=== PATIENT | female | born 1940 ===

== ENCOUNTER 2018-04-17 06:09 | Day surgery (SDC) | payer MEDICARE, BC ==
[2018-04-12 09:27] VITALS: BMI 22.1
[2018-04-17] MEDS ORDERED: Lidocaine 1% Inj (20ml) IJ ONE (07:19)
[2018-04-17] MEDS ORDERED: ceFAZolin IV 1 gm in Dextrose 1 GM/50 ML BAG IVPB ONE (07:19)
[2018-04-17] MEDS ORDERED: Bupivacaine 0.25% Inj(30mL) IJ ONE (07:19)
--- NOTE | 2018-04-17 07:21 | CP.SDSHP ---
Same Day Surgery H & P - History Proposed Procedure: right foot 5th digit markie-phalagectomy middle phalanx Pre-Op Diagnosis: pain to right 5th digit - Previous Medical/Surgical History Pain: 4.Moderate Pain - Allergies Allergies: Allergies No Known Allergies Allergy (Verified 04/12/18 09:27) - Physical Exam Vital Signs: Vital Signs 04/17/18 04/17/18 06:48 06:50 Temperature 98.7 F Pulse Rate 65 65 Respiratory 20 Rate Blood Pressure 163/65 H O2 Sat by Pulse 97 Oximetry Neuro: WNL - {Optional Preform as Required} Integument: WNL - Impression Pt. Evaluated Today:Candidate for Anesthesia & Procedure: Yes - Date & Time Date: 04/17/18 Time: 07:21 Short Stay Discharge - Short Stay Discharge Admitting Diagnosis/Reason for Visit: M20.41,M25.744 Disposition: HOME/ ROUTINE Referrals: Ron Beckford MD [Primary Care Provider] - Additional Instructions (Diet, Activity): -Patient in good/stable condition for discharge home -Pt to resume medications per medical reconciliation -Resume regular diet Please keep dressing clean, dry, & intact to surgical site -Use plastic bag over bandage for showering -Wear post op shoe at all times when ambulating -Call clinic if you see signs of infection (redness, swelling, malodor) -Please make an appointment to see Dr. Julian in office/clinic within 1 week for post-op check Progress Note/Discharge Note with Instructions: - Patient evaluated bedside in recovery s/p surgical procedure. - After surgical procedure patient in NAD - (+) Void, (+) Appetite - Capillary refill time <3s and NVSI intact. - Patient denies complaints at this time - Post operative instructions and plan of care explained to patient at length. - Pt. acknowledges understanding. - Patient stable for DC per podiatric surgery
--- NOTE | 2018-04-17 07:24 | CP.PCM.PN ---
Subjective - Date & Time of Evaluation Date of Evaluation: 04/17/18 Time of Evaluation: 07:21 - Subjective Subjective: Podiatry progress note for Dr. Julian 78 y/o female with PMHx of diabetes and HTN seen and evaluated at bedside in [facility] for surgery to the 5th right digit. Patient states she has had pain to the site for many months. Patient states she last ate or drank at 7 PM last night. Patient denies any reaction to anesthesia in the past. Patient's son is at bedside and states she had a blister, which she popper herself and that led to any infection of the 5th digit. PMHx: Diabetes, HTN, hx of heart condition with pacemaker Medications: in chart Allergies: none Objective - Vital Signs/Intake and Output Vital Signs (last 24 hours): Temp Pulse Resp BP Pulse Ox 98.7 F 65 20 163/65 H 97 04/17/18 06:48 04/17/18 06:50 04/17/18 06:48 04/17/18 06:48 04/17/18 06:48 - Medications Medications: Current Medications Bupivacaine HCl (Marcaine 0.25%) 20 ml IJ ONCE ONE Stop: 04/17/18 07:20 Cefazolin Sodium 1 gm/ Sodium (Chloride) 100 mls @ 100 mls/hr IVPB ONCE ONE PRN Reason: Protocol Stop: 04/17/18 08:18 Sodium Chloride (Sodium Chloride 0.9%) 1,000 mls @ 0 mls/hr IV .Q0M CRISTINA PRN Reason: As Directed Stop: 04/18/18 07:19 Lidocaine HCl (Lidocaine 1% (20ml)) 20 ml IJ ONCE ONE Stop: 04/17/18 07:20 - Constitutional Appears: Well, Non-toxic, No Acute Distress - Head Exam Head Exam: ATRAUMATIC, NORMOCEPHALIC - Extremities Exam Additional comments: VASC: DP and PT 2/4 bilaterally, CFT less than 3 seconds X 10, TG within normal limits, +1 pitting edema to anterior legs bilaterally NEURO: grossly intact DERM: minimal erythema noted to the lateral aspect of the 5th digit, no swelling, no open lesions, no clinical signs of infection ORTHO: pain on palpation of the right 5th MTPJ, pain on palpation to the 5th digit, submet 1 hyperkeratotic lesion noted with pain on palpation - Neurological Exam Neurological Exam: Alert, Awake, Oriented x3 - Psychiatric Exam Psychiatric exam: Normal Affect, Normal Mood Assessment and Plan - Assessment and Plan (Free Text) Assessment: 78 y/o female seen and evaluated in [facility] for surgery to right 5th digit Plan: Pt was seen and examined in [facility] Pt NPO status was confirmed All pre-op testing and clearance in chart Pt has exhausted all conservative treatment at this time and is opting for surgical intervention Pt was explained procedure and post-operative course All pt's questions were answered to satisfaction No guarantees were made Pt understands all risks, benefits and complications of procedure Pt will follow-up with Dr. Julian within 1 week of surgery
[2018-04-17] MEDS ORDERED: Sodium Chloride 0.9% 1,000 ML IV SCH (07:30)
[2018-04-17] MEDS ORDERED: Propofol 10 mg/ml Inj (20 ML) ONE (07:57)
[2018-04-17] MEDS ORDERED: Midazolam 2 MG/2 ML VIAL ONE (07:57)
[2018-04-17] MEDS ORDERED: ceFAZolin IV 1 gm in Dextrose 2 GM/100 ML BAG IVPB ONE (08:00)
[2018-04-17] MEDS ORDERED: Lidocaine 2% PF (10 ml) Amp ONE (08:03)
[2018-04-17] MEDS ORDERED: Lactated Ringer's 1,000 ML IV ONE (08:05)
[2018-04-17] MEDS ORDERED: Lidocaine 2% Inj (20ml) IJ ONE (08:25)
[2018-04-17] MEDS ORDERED: Oxycodone/Acetaminophen 5/325 mg Tab PO PRN (08:31)
[2018-04-17] MEDS ORDERED: Bupivacaine HCl 0.25% PF (30 ml) Inj IJ ONE ×2 (08:35)
--- NOTE | 2018-04-17 09:08 | PCM.SURG1 ---
Surgeon's Initial Post Op Note - Surgeon's Notes Surgeon: Dr. John Julian, DPM Inspector: Dr. Erin Pitts PGY2, Dr. Kev Marquez PGY2 Type of Anesthesia: IV Sedation, Local Anesthesia Administered By: Dr. Mathews Pre-Operative Diagnosis: Right foot fifth digit hammertoe deformity. Right foot distal phalanx osteophyte Operative Findings: See dictation report. M- 3-0 vicryl, 3-0 nylon. I - 10 cc 2% lidocaine plain preop, 6 cc 0.5% marcaine postop Post-Operative Diagnosis: Same Operation Performed: Right foot fifth digit PIPJ arthroplasty. Right foot fifth digit distal phalanx removal of osteophyte Specimen/Specimens Removed: Bone right foot Estimated Blood Loss: EBL {In ML}: 2 Blood Products Given: N/A Drains Used: No Drains Post-Op Condition: Good Date of Surgery/Procedure: 04/17/18 Time of Surgery/Procedure: 09:09
[2018-04-17] MEDS ORDERED: Lactated Ringer's 1,000 ML IV SCH (09:15)
[2018-04-17] MEDS ORDERED: Bupivacaine 0.25% Inj(30mL) ONE (11:15)
--- NOTE | 2018-04-17 11:54 | RAD ---
Date of service: 04/17/2018 PROCEDURE: Right Foot Radiographs. HISTORY: s/p right foot surgery COMPARISON: None. FINDINGS: BONES: Prior osteotomy of the mid/distal 5th proximal phalanx. Multiple hammertoe deformities. Partially imaged distal fibular fixation plate. JOINTS: Diffuse joint space narrowing. SOFT TISSUES: Normal. OTHER FINDINGS: Achilles enthesophyte. Inferior plantar calcaneal spur. IMPRESSION: Prior 5th digit osteotomy as described above.
[2018-04-17] MEDS ORDERED: Insulin Regular 100 units/ml SC SCH (12:00)
[2018-04-17 12:05] VITALS: BP 173/65; PULSE 61; RESP 18; TEMP 98.2; O2SAT 97
--- NOTE | 2018-04-21 06:25 | OP ---
PROCEDURE DATE: 04/17/2018 PREOPERATIVE DIAGNOSES: 1. Right foot fifth digit hammertoe deformity. 2. Right foot fifth digit distal phalanx osteophyte. POSTOPERATIVE DIAGNOSES: 1. Right foot fifth digit hammertoe deformity. 2. Right foot fifth digit distal phalanx osteophyte. PROCEDURES PERFORMED: 1. Right foot fifth digit proximal interphalangeal joint arthroplasty. 2. Right foot fifth digit distal phalanx removal of osteophyte. SURGEON: John Julian DPM ASSISTANTS: Erin Pitts DPM, PGY-2 and Kev Marquez DPM, PGY-2 ANESTHESIOLOGIST: Sherrill Mathews MD TYPE OF ANESTHESIA: IV sedation plus local induction. INDICATIONS: The patient is a 78-year-old female with the above mentioned diagnoses. The patient has been treated by Dr. Julian in his office on an outpatient basis. The patient has exhausted all conservative treatment at this time and now requested full intervention. All risks, benefits, and complications of the proposed procedure have been explained to the patient at length. The patient verbalized understanding and wishes to proceed. All questions were answered. No guarantees were given or implied. Consent was signed and NPO status was confirmed prior to bringing the patient to the operating room. OPERATIVE PROCEDURE: The patient was brought into the operating room and placed on the operating room table in the supine position. A Pneumatic ankle tourniquet was applied to the right ankle in a supramalleolar position. Once IV sedation was achieved, a local injection of 10 mL of 2% lidocaine plain was injected in a digital block fashion to the right foot fifth digit. Once local anesthesia was achieved, the right lower extremity was prepped and draped in the usual sterile manner. Pneumatic ankle tourniquet was inflated to 250 mmHg, and the procedure was began. PROCEDURE #1: Right foot proximal interphalangeal joint arthroplasty. At this time, attention was directed to the dorsal aspect of the right foot fifth digit where a linear longitudinal incision was made overlying the proximal interphalangeal joint and extending to the distal interphalangeal joint approximately 2 cm in length. The incision was made using a sterile 15 blade. The incision was deepened through the subcutaneous tissue with care being taken to identify and retract all vital neurovascular structures. All bleeders were cauterized and ligated as necessary. At this time, a transverse tenotomy and capsulotomy were performed to the proximal interphalangeal joint of the fifth digit of the right foot. The head of the proximal phalanx was then freed of all capsular and ligamentous ruptures and its attachments. Utilizing an oscillating saw, the head of the proximal phalanx was resected and passed from the operative field. The wound was then flushed with copious amounts of normal sterile saline. PROCEDURE #2: Right foot fifth digit distal phalanx removal of osteophyte. At this time, attention was then redirected using distal aspect of the insertion where it was noted to be prominent osteophyte at the lateral aspect of the second digit of distal phalanx. Using a handheld rongeur, osteophytic bone was dissected and passed from the operative field. A handheld bone rasp was then utilized to the lateral aspect of the patient's distal phalanx. The rongeur was then utilized to resect the prominent bone at the lateral aspect of the patient's middle phalanx so us to ensure adequate alignment of the right foot fifth digit without any prominent bone. Once again, the handheld rasp was utilized to smooth all bony surfaces. At this time, the wound was flushed with copious amounts of normal sterile saline. The extensor tendon was reapproximated using 3-0 Vicryl sutures, and the skin was reapproximated with 3-0 nylon sutures. An additional 6 mL of 0.5% Marcaine plain was then injected postoperatively to the surgical site. Postoperative bandages included Xeroform, 4x4 gauze, and a Coban bandage. POSTOPERATIVE CONDITION: The patient tolerated the anesthesia and procedure well and was escorted to the recovery room with vital signs stable and neurovascular status intact. The patient is stable for discharge from podiatry standpoint and will follow up with Dr. Julian in his office on an outpatient basis. Erin Pitts DPM John Julian DPM [facility] # [id number]
== END 2018-04-17 12:40 | disposition home or self-care (01) ==
LOC: H.OPSURG 06:09
PROVIDERS: ATTEND Podiatrist
DX: M20.41 Other hammer toe(s) (acquired), right foot (principal); M19.90 Unspecified osteoarthritis, unspecified site; I25.10 Atherosclerotic heart disease of native coronary artery without angina pectoris; E11.9 Type 2 diabetes mellitus without complications; E75.5 Other lipid storage disorders; I10 Essential (primary) hypertension; F03.90 Unspecified dementia, unspecified severity, without behavioral disturbance, psychotic disturbance, mood disturbance, and anxiety; F32.9 Major depressive disorder, single episode, unspecified; Z95.0 Presence of cardiac pacemaker
CPT/HCPCS: 28285; 73630; 82948; 88305; J0690; J2001; J2250; J2704; J3010; J7030; J7120